=== PATIENT | male | born 1980 | race African-American/Black ===

== ENCOUNTER → 2016-10-19 | Outpatient (CLI) | payer BC, OTHER | LOC: ULTRA 10-14 11:54 | DX: R10.11 Right upper quadrant pain (principal) ==

== ENCOUNTER 2017-12-13 08:15 | Emergency (ER) | payer BC, OTHER ==
[~2017-12-13] VITALS: Ht 180.3 cm; Wt 72.6 kg
[2017-12-13 09:13] LABS: CALCIUM 9.3 mg/dL (8.5-10.1); CREATININE 1.1 mg/dL (0.7-1.3); POTASSIUM 3.4 mmol/L (3.5-5.1)
[2017-12-13 09:19] LABS: ABSOLUTE NEUTROPHILS 10.1 thou/uL (1.4-8.2); BASOPHILS 0.3 % (0.0-2.0); EOSINOPHILS 0.1 % (0.0-3.0); HEMATOCRIT 37.7 % (42.0-52.0); HEMOGLOBIN 13.2 gm/dL (14.0-18.0); LYMPHOCYTES 8.9 % (24.0-44.0); MCH 31.6 pg (26.0-34.0); MCV 90.4 fL (80.0-100.0); PLATELET COUNT 223 thou/uL (150-400); POLYS 80.7 % (36.0-66.0); RBC 4.17 mil/uL (4.50-6.00); RDW 13.7 % (10.5-14.5); WBC 12.5 thou/uL (4.0-11.0)
[2017-12-13 09:19] LABS: ALBUMIN 4.1 g/dL (3.4-5.0); TOTAL BILIRUBIN 0.9 mg/dL (<0.1-1.0); TOTAL PROTEIN 7.7 g/dL (6.4-8.2)
[2017-12-13] MEDS ORDERED: ZOFRAN ODT4 MG PO (10:56)
[2017-12-13] MEDS ORDERED: PROTONIX40 M1 PO (10:56)
[2017-12-13] MEDS ORDERED: BENTYL 20 MG TA20 M1 PO (10:56)
[2017-12-13 11:06] VITALS: BP 122/74
== END 2017-12-13 11:13 | disposition home or self-care (01) ==
LOC: ER 08:15
PROVIDERS: Emergency Medicine
DX: K52.9 Noninfective gastroenteritis and colitis, unspecified (principal); F17.210 Nicotine dependence, cigarettes, uncomplicated